=== PATIENT | female | born 1955 | race Caucasian/White ===

== ENCOUNTER → 2018-07-18 14:14 | Outpatient (CLI) | payer OTHER, SELFPAY ==
[2018-07-18 07:33] VITALS: BMI 27.9
== END ==
PROVIDERS: Family Provider Family Medicine; PCP Family Medicine; Referring Provider Nurse Practitioner Family; Visit Provider Nurse Practitioner Family
DX: J02.9 Acute pharyngitis, unspecified (principal)
CPT/HCPCS: 87081

== ENCOUNTER → 2018-10-22 | Outpatient (CLI) | payer OTHER, SELFPAY ==
[2018-07-24 06:43] VITALS: BMI 27.9
[2018-10-22 10:23] LABS: Cholesterol 245 mg/dL (200); Glucose 97 mg/dL (74-106); High Density Lipoprotein 51 mg/dL; Triglycerides 113 mg/dL; Very Low Density Lipoprotein 23 mg/dL (5-40)
[2018-10-22 10:27] LABS: Vitamin D,25 Hydroxy 20.7 ng/mL (29.95-100.01)
== END | disposition home or self-care (01) ==
LOC: MFPLAB 09:20
PROVIDERS: Visit Provider Family Medicine
DX: Z13.21 Encounter for screening for nutritional disorder (principal); Z13.220 Encounter for screening for lipoid disorders
CPT/HCPCS: 36415; 80061; 82306; 82947

== ENCOUNTER → 2019-02-21 | Outpatient (CLI) | payer SELFPAY ==
[2018-07-24 06:43] VITALS: BMI 27.9
[2019-02-21 10:26] LABS: Cholesterol 233 mg/dL (200); High Density Lipoprotein 50 mg/dL; Triglycerides 218 mg/dL; Very Low Density Lipoprotein 44 mg/dL (5-40)
[2019-02-21 10:27] LABS: Vitamin D,25 Hydroxy 34.5 ng/mL (29.95-100.01)
== END | disposition home or self-care (01) ==
LOC: MFPLAB 08:33
PROVIDERS: Family Provider Family Medicine; PCP Family Medicine; Referring Provider Family Medicine; Visit Provider Family Medicine
DX: E55.9 Vitamin D deficiency, unspecified (principal); Z13.220 Encounter for screening for lipoid disorders
CPT/HCPCS: 36415; 80061; 82306

== ENCOUNTER → 2020-09-06 10:35 | Outpatient (CLI) | payer MEDICARE, OTHER, SELFPAY ==
[2018-07-24 06:43] VITALS: BMI 27.9
== END ==
PROVIDERS: PCP Family Medicine; Referring Provider Family Medicine; Visit Provider Family Medicine
DX: R35.0 Frequency of micturition (principal)
CPT/HCPCS: 87077; 87086; 87088; 87186